=== PATIENT | male | born 1980 | race Caucasian/White ===

== ENCOUNTER → 2022-02-14 14:03 | Outpatient (BNVA) | payer BC, MEDICARE, SELFPAY | PROVIDERS: Family Provider Family Medicine; PCP Family Medicine; Visit Provider Family Medicine | DX: L82.1 Other seborrheic keratosis (principal) | CPT/HCPCS: 88304 ==

== ENCOUNTER 2023-06-12 18:03 | Emergency (ER) | payer BC, MEDICARE, SELFPAY ==
--- NOTE | 2023-06-12 18:09 | XRR_ITS ---
PROCEDURE INFORMATION: Exam: XR Chest Exam date and time: 06/12/2023 6:36 PM Age: 42 years old Clinical indication: Angina; Additional info: Cp TECHNIQUE: Imaging protocol: Radiologic exam of the chest. Views: 1 view. COMPARISON: CT chest con [id number] 06/06/2017 8:54 AM FINDINGS: Lungs: Unremarkable. No consolidation. Pleural spaces: Unremarkable. No pleural effusion. No pneumothorax. Heart/Mediastinum: Unremarkable. No cardiomegaly. Bones/joints: Unremarkable. XR/XR chest 1V portable [id number] IMPRESSION: No acute findings.
--- NOTE | 2023-06-12 18:09 | ECG_ITS ---
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 Measurements Intervals [place] Rate: 105 P: 42 OR: 121 QRS: 25 QRSD: 97 T: 56 QT: 312 QTc: 414 Interpretive Statements SINUS TACHYCARDIA Compared to ECG 06/05/2017 11:17:38 Sinus rhythm no longer present T-wave abnormality no longer present Electronically Signed On 06-12-2023 18:30:46 MIXED CROP AND LIVESTOCK FARMER by Darren Thomson M.D. [id number] f
[2023-06-12 18:13] VITALS: BP 135/81; PULSE 110; RESP 16; TEMP 37.1; O2SAT 96; BMI 29.4
--- NOTE | 2023-06-12 18:30 | ED_ITS ---
HPI - Chest Pain 2 General: Chief Complaint: Chest Pain Stated Complaint: cp Time Seen by Provider: 06/12/23 18:23 Source: patient Mode of arrival: ambulatory Limitations: no limitations History of Present Illness: 42-year-old male states he has been havi ng chest pain throughout the day. He states it has been a pain in the center of his chest with some going down his left arm. States he had some dyspnea as well. He denies any cough or fever no history of coronary artery disease. Associated symptoms: Deny abdominal pain, dyspnea, fever(s), nausea or vomiting Review of Systems 2 Const: Denies: fever(s), chills, body aches or change in appetite Eyes: Denies: blurry vision or eye discomfort ENMT: Denies: throat pain or dental pain Card: Reports: chest pain Resp: Denies: dyspnea GI: Denies: abdominal pain, nausea, vomiting or diarrhea Musc: Denies: neck pain or back pain Skin/Breast: Denies: rash Neuro: Denies: headache(s) Physical Exam 2 Const: COMMON NORMALS: patient oriented x3 HENMT: COMMON NORMALS: normocephalic and atraumatic HEAD & SCALP: n ormocephalic and atraumatic Eye: COMMON NORMALS: Equal, round and reactive pupils present and EOMs intact bilaterally PUPIL: Yes Equal, round and reactive pupils present Neck/C-Spine: COMMON NORMALS: full ROM and supple Chest: COMMONS NORMALS: normal inspection of the chest and normal palpation of entire chest wall Resp: COMMON NORMALS: normal respiratory effort, No retractions, No use of accessory muscles and clear to auscultation bilaterally AUSCULTATION: clear to auscultation bilaterally Cardio: COMMON NORMALS: regular rhythm and No murmurs present (Cardio) R ATE: tachycardic RHYTHM: regular rhythm GI: COMMON NORMALS: Normal to inspection, nondistended, normoactive bowel sounds present, Soft to palpation, non-tender and no masses PALPATION: Yes Soft to palpation Extremity: COMMON NORMALS: normal to inspection and full ROM Neuro: COMMON NORMALS: patient oriented x3, moves all extremities and no focal motor deficits Psych: COMMON NORMALS: mental status grossly normal, Normal thought process present and cooperative THOUGHT PROCESS: Normal thought process present Skin: COMMON NORMALS: no rashes or lesions noted and no wounds GENERAL SKIN EXAM: no rashes or lesions noted Course 2 Vital Signs: Vital signs: Vital Signs Temperature 98.7 F 06/12/23 18:13 Pulse Rate 78 06/12/23 20:18 Respiratory Rate 15 06/12/23 20:18 Blood Pressure 146/81 06/12/23 18:59 Pulse Oximetry 97 06/12/23 20:18 Oxygen Delivery Me thod Room Air 06/12/23 20:18 MDM - Chest Pain Medical Decision Making Patient presents with chest pain since resolved patient is well-appearing here EKG his troponin D-dimer all normal no signs of acute coronary syndrome or dissection he is stable for discharge she is follow-up with PCP and return if worsening. Medical Records I reviewed the patient's medical records. Lab Data I reviewed the patient's lab results. 06/12/23 18:13 06/12/23 18:13 Radiology Impressions Chest X-Ray 06/12/23 18:09 IMPRESSION: No acute findings. Laboratory Results WBC 8.32 10^3/uL (3.29-11.43) 06/12/23 18:13 RBC 5.07 10^6/uL (3.85-5.65) 06/12/23 18:13 Hgb 16.20 g/dL (11.27-16.99) 06/12/23 18:13 Hct 46.8 % (37-53) 06/12/23 18:13 MCV 92.3 fl (82-101) 06/12/23 18:13 MCH 32.0 pg (27-33) 06/12/23 18:13 MCHC 34.6 g/dL (30-55) 06/12/23 18:13 RDW 13.0 % (12.1-15.1) 06/12/23 18:13 Plt Count 330 10^3/cmm (157-399) 06/12/23 18:13 MPV 8.9 fL (7.4-10.4) 06/12/23 18:13 Neut % (Auto) 35.0 % 06/12/23 18:13 Lymph % (Auto) 55.4 % 06/12/23 18:13 Dewitt % (Auto) 7.1 % 06/12/23 18:13 Eos % (Auto) 2.0 % 06/12/23 18:13 Baso % (Auto) 0.4 % 06/12/23 18:13 Neut # (Auto) 2.91 10^3/uL (1.8-7.7) 06/12/23 18:13 Lymph # (Auto) 4.6 10^3/uL (0.8-4.8) 06/12/23 18:13 Dewitt # (Auto) 0.6 10^3/uL (0.2-0.9) 06/12/23 18:13 Eos # (Auto) 0.2 10^3/uL (0.0-0.8) 06/12/23 18:13 Baso # (Auto) 0.0 10^3/uL (0.0-0.1) 06/12/23 18:13 Nucleated RBC % (auto) 0 % 06/12/23 18:13 Nucleated RBCs # 0.0 /100WBC 06/12/23 18:13 PT 12.40 SECONDS (12.1-14.9) 06/12/23 18:13 INR 0.90 (0.8-1.2) 06/12/23 18:13 D-Dimer 0.31 ug/mLFEU (0-0.59) 06/12/23 18:13 Sodium 139 mmol/L (136-145) 06/12/23 18:13 Potassium 3.9 mmol/L (3.5-5.1) 06/12/23 18:13 Chloride 104 mmol/L (98-107) 06/12/23 18:13 Carbon Dioxide 23 mmol/L (22-29) 06/12/23 18:13 Anion Gap 15.9 (5-19) 06/12/23 18:13 BUN 8 mg/dL (6-20) 06/12/23 18:13 Creatinine 0.7 mg/dL (0.7-1.2) 06/12/23 18:13 GFR Calculation 122.5 mL/min (90-130) 06/12/23 18:13 Glucose 103 mg/dL (65-115) 06/12/23 18:13 Calculated Osmolality 287 mOsm/kg (285-295) 06/12/23 18:13 Calcium 9.1 mg/dL (8.5-10.5) 06/12/23 18:13 Total Bilirubin 0.4 mg/dL (0.15-1.2) 06/12/23 18:13 AST 16 U/L (0-40) 06/12/23 18:13 ALT 20 U/L (0-41) 06/12/23 18:13 Alkaline Phosphatase 100 U/L (40-130) 06/12/23 18:13 Troponin T Baseline < 6 ng/L (0-15) 06/12/23 18:13 Troponin T 120 Minute 6.00 ng/L (0-15) 06/12/23 19:50 Delta Troponin T 0.91162 ABS# (0-10) 06/12/23 19:50 Total Protein 7.3 g/dL (6.6-8.7) 06/12/23 18:13 Albumin 4.4 g/dL (3.5-5.2) 06/12/23 18:13 Globulin 2.9 g/dL (1.3-4.6) 06/12/23 18:13 Lipase 34 U/L (13-60) 06/12/23 18:13 All radiology interpretation(s) finalized by discharge EKG Data EKG 2: I personally reviewed and interpreted this EKG as follows: EKG interpretation date: 06/12/23 EKG interpretation time: 19:57 Interpretation: nsr hr [address] or t wave abnormalities qrs 97 qtc 404 EKG 1: I personally reviewed and interpreted this EKG as follows: EKG interpretation date: 06/12/23 EKG interpretation time: 18:09 Interpretation: sinus tach hr [address] or t wave abnormalities qrs 97 qtc 414 Discharge Plan Discharge Patient Disposition: Home Clinical Impression: Chest pain Qualifiers: Chest pain type: unspecified Qualified Code(s): R07.9 - Chest pain, unspecified Condition: Stable Prescriptions: No Action simvastatin 40 mg tablet See Rx Instructions .ROUTE .COMPLEX Qty: 90 3RF Dose Instruction: TAKE 1 TABLET BY MOUTH EVERY DAY Rx Instructions: TAKE 1 TABLET BY MOUTH EVERY DAY gabapentin 300 mg capsule See Rx Instructions .ROUTE .COMPLEX Qty: 90 11RF Dose Instruction: TAKE 1 CAPSULE BY MOUTH THREE TIMES A DAY Rx Instructions: TAKE 1 CAPSULE BY MOUTH THREE TIMES A DAY Discharge Orders: Discharge ED (Routine); Ordered 06/12/23 Ordered By: Arnulfo Cervantes Referrals: Goran Lui MD [Primary Care Provider] - Discharge Diet: Advance as tolerated Discharge Activity: Resume usual activity Patient Instructions: Chest Pain (ED) Coding Level of Care Code ED Senior 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
[2023-06-12 18:52] LABS: Basophils % 0.4 %; Eosinophils # 0.2 10^3/uL (0.0-0.8); Hematocrit 46.8 % (37-53); Lymphocytes # 4.6 10^3/uL (0.8-4.8); Lymphocytes % 55.4 %; Mean Corpuscular HGB Conc 34.6 g/dL (30-55); Mean Corpuscular Volume 92.3 fl (82-101); Mean Platelet Volume 8.9 fL (7.4-10.4); Monocytes # 0.6 10^3/uL (0.2-0.9); Monocytes % 7.1 %; Neutrophils # 2.91 10^3/uL (1.8-7.7); Nucleated Red Blood Cells % 0 %; Platelet Count 330 10^3/cmm (157-399); Red Blood Count 5.07 10^6/uL (3.85-5.65); White Blood Count 8.32 10^3/uL (3.29-11.43)
[2023-06-12 18:57] VITALS: RESP 14; O2SAT 96
[2023-06-12] MEDS: morphine 4 mg/mL SDV 1 mL IVP (18:57)
[2023-06-12] MEDS: aspirin 81 mg Chew Tablet 324 MG PO (18:57)
[2023-06-12 18:59] VITALS: BP 146/81; PULSE 89; RESP 17; O2SAT 94
[2023-06-12] MEDS: ondansetron 2 mg/ML SDV 2 mL 4 MG IVP (18:59)
[2023-06-12 19:08] LABS: Troponin(5th) Baseline < 6 ng/L (0-15)
[2023-06-12 19:09] LABS: Alanine Aminotransferase 20 U/L (0-41); Albumin Level 4.4 g/dL (3.5-5.2); Alkaline Phosphatase 100 U/L (40-130); Anion Gap 15.9 (5-19); Aspartate Amino Transferase 16 U/L (0-40); Blood Urea Nitrogen 8 mg/dL (6-20); Calcium 9.1 mg/dL (8.5-10.5); Carbon Dioxide 23 mmol/L (22-29); Chloride 104 mmol/L (98-107); Globulin 2.9 g/dL (1.3-4.6); Glomerular Filtration Rate 122.5 mL/min (90-130); Glucose 103 mg/dL (65-115); Lipase 34 U/L (13-60); Osmolality Calculated 287 mOsm/kg (285-295); Potassium 3.9 mmol/L (3.5-5.1); Sodium 139 mmol/L (136-145); Total Bilirubin 0.4 mg/dL (0.15-1.2); Total Protein 7.3 g/dL (6.6-8.7)
[2023-06-12 19:14] LABS: D Dimer 0.31 ug/mLFEU (0-0.59)
[2023-06-12 20:11] LABS: Troponin 5 2HR Delta 0.00001 ABS# (0-10)
[2023-06-12 20:18] VITALS: PULSE 78; RESP 15; O2SAT 97
[2023-06-12 20:43] VITALS: PULSE 78; RESP 15; O2SAT 97
== END 2023-06-12 20:30 | disposition home or self-care (01) ==
PROVIDERS: Emergency Provider Emergency Medicine; Family Provider Family Medicine; PCP Family Medicine
DX: R07.9 Chest pain, unspecified (principal)
CPT/HCPCS: 36415; 71045; 80053; 83690; 84484; 85025; 85378; 85610; 93005; 96374; 96375; 99285; J2270; J2405

== ENCOUNTER → 2024-01-28 08:31 | Outpatient (BNVA) | payer BC, MEDICARE, SELFPAY | PROVIDERS: Family Provider Family Medicine; PCP Family Medicine; Visit Provider Family Medicine | DX: R30.0 Dysuria (principal); R39.11 Hesitancy of micturition | CPT/HCPCS: 81000; 84153; 87086 ==

== ENCOUNTER 2024-05-28 07:51 | Outpatient (CLI) | payer BC, MEDICARE, SELFPAY ==
--- NOTE | 2024-05-28 07:58 | MR_ITS ---
WS: [id number] MRI CERVICAL SPINE NONCONTRAST HISTORY: CERVICALGIA COMPARISON: 01/12/2019 Technique: Multiplanar, multisequence noncontrast imaging of the cervical spine. Straightening very slight reversal of the normal cervical lordosis. Mild progression of degenerative disc disease and osteophytosis in the cervical spine since 01/12/2019. Signal within the cervical cord is normal. Visualized posterior fossa is unremarkable. Craniocervical junction, C1 and C2 relationship, odontoid process and soft tissues are normal. C2-C3: Small central disc protrusion. No stenosis. C3-C4: Mild annular disc bulging with osteophytic ridging. Shallow central disc protrusion. No signif icant stenosis. C4-C5: Mild annular disc bulging with a central disc protrusion and osteophytic ridging. Mild bilater al facet arthritis. Effacement of ventral CSF. Mild encroachment on the ventral thecal sac by the dis c protrusion. Very mild central and bilateral foraminal stenosis. No obvious change. C5-C6: Diffuse annular disc bulging with mild osteophytic ridging. Small central disc protrusion. Mil d facet arthritis. Mild central and bilateral foraminal stenosis. C6-C7: No stenosis. C7-T1: No stenosis. Paraspinal soft tissue are normal. MR/MR cervical spin wo con* [id number] IMPRESSION: 1. No high-grade central or foraminal stenosis. 2. Mild progression of degenerative disc disease and osteophytosis since 2018. 3. C2-3 and C3-4: Small central disc protrusions. No stenosis. 4. C4-5: Mild central and bilateral foraminal stenosis due to disc and osteoph yte disease. No progression. 5. C5-6: Mild central and bilateral foraminal stenosis with a small central di sc protrusion. No progression.
== END 2024-05-28 07:52 | disposition home or self-care (01) ==
LOC: RAD 07:53
PROVIDERS: Family Provider Family Medicine; PCP Family Medicine; Visit Provider Nurse Practitioner
DX: M50.20 Other cervical disc displacement, unspecified cervical region (principal); M25.78 Osteophyte, vertebrae
CPT/HCPCS: 72141

== ENCOUNTER 2024-08-13 14:10 | Inpatient (IN) | payer BC, MEDICARE, SELFPAY ==
[2024-08-13] VITALS (23 sets, daily range): BP systolic 115–172; BP diastolic 72–121; PULSE 64–104; RESP 11–17; TEMP 36.6–36.9; O2SAT 92–100; BMI 28.5
--- NOTE | 2024-08-13 14:11 | ECG_ITS ---
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 Measurements Intervals [place] Rate: 100 P: 22 MO: 128 QRS: 22 QRSD: 97 T: -7 QT: 342 QTc: 442 Interpretive Statements SINUS TACHYCARDIA POSSIBLE RIGHT VENTRICULAR CONDUCTION DELAY [RSR (QR) IN V1/V2] MINIMAL VOLTAGE CRITERIA FOR LVH, CONSIDER NORMAL VARIANT [MEETS CRITERIA IN ONE OF: R(aVL), S(V1), R(V5), R(V5/V6)+S(V1)] ABNORMAL RHYTHM ECG Compared to ECG 06/12/2023 18:09:56 No significant changes Electronically Signed On 08-14-2024 18:01:36 ROUTE SALESMAN by Darren Thomson M.D. [email or web address] [id number]
--- NOTE | 2024-08-13 14:11 | XR_ITS ---
WS: [id number] XR chest 1V portable [id number] REASON FOR EXAM: dyspnea/cough FINDINGS: Chest is stable compared to 06/12/2023. Normal mediastinum. The heart is at the upper limits of normal in size. Bilateral calcified granulomatous disease. No acute pulmonary parenchymal or pleural abnormality Bony thorax intact without significant abnormality. XR/XR chest 1V portable [id number] IMPRESSION: Stable chest without acute abnormality.
--- NOTE | 2024-08-13 14:13 | ED_ITS ---
HPI - Chest Pain 2 General: Chief Complaint: Chest Pain Stated Complaint: chest pain Time Seen by Provider: 08/13/24 14:11 History of Present Illness: 43-year-old male presents emergency room via field services director for his primary care physician after experiencing chest pain. Patient states for the last about 1 to 2 weeks she has had intermittent episodes of chest pain last from a few seconds to a few minutes he does not notice anything that exacerbates or relieves it. He reports back in 2017 he had a episode of chest pain he was admitted at that time and had a cardiac cath was told it was not normal. Since then he has not had any stress test. Patient is a smoker he has a strong family history of heart disease several family members who in their 50s of coronary artery disease. He is mildly overweight and is a daily smoker. Reviewing chart on June 12, 2023 patient was in the emergency room with complaints of chest pain evaluation at that time was negative he did not have a follow-up stress test that I can find in the chart. Associated symptoms: Deny abdominal pain, dyspnea or fever(s) Related Data Home Medications ?Medication ?Instructions ?Recorded ?Confirmed aspirin 81 mg tablet,delayed 81 mg PO DAILY 06/17/23 0 08/13/24 release (Adult Aspirin Regimen) hydrocodone 10 mg-acetaminophen See Rx Instructions .R oute .COMPLEX 08/13/24 08/13/24 325 mg tablet Previous Rx's ?Medication ?Instructions ?Recorded duloxetine 60 mg capsule,delayed 60 mg PO DAILY #90 ca ps 09/11/23 release simvastatin 40 mg tablet See Rx Instructions .Route 0 10/22/23 .COMPLEX #90 tabs gabapentin 300 mg capsule See Rx Instructions .Route 0 02/04/24 .COMPLEX #90 caps gabapentin 600 mg tablet See Rx Instructions .Route 0 06/28/24 .COMPLEX #90 tabs Allergies Allergy/AdvReac Type Severity Reaction Status Date / Time No Known Allergies Allergy Verified 08/13/24 13:10 Review of Systems 2 Const: Denies: fever(s) or chills Card: Reports: chest pain Resp: Denies: dyspnea GI: Denies: abdominal pain : Denies: dysuria, urinary frequency or urinary urgency Musc: Reports: back pain (Chronic); Denies: neck pain Skin/Breast: Denies: rash PFSH ED 2 PFSH: Medical History Hypertension Chronic back pain Anxiety Social History Smoking and tobacco/nicotine status: current every day tobacco/nicotine user Physical Exam 2 Const: GENERAL APPEARANCE: cooperative ORIENTATION/CONSCIOUSNESS: Yes awake, Yes oriented to person, Yes oriented to place and Yes oriented to time HENMT: COMMON NORMALS: normocephalic, atraumatic and hearing grossly normal bilaterally HEAD & SCALP: normocephalic and atraumatic Resp: COMMON NORMALS: normal respiratory effort, No retractions, No use of accessory muscles and clear to auscultation bilaterally AUSCULTATION: clear to auscultation bilaterally Cardio: COMMON NORMALS: regular rate, regular rhythm and No murmurs present (Cardio) RATE: regular rate RHYTHM: regular rhythm GI: COMMON NORMALS: Soft to palpation and No hepatosplenomegaly present A USCULTATION: Yes normoactive bowel sounds PALPATION: Yes Soft to palpation, No Tenderness to palpation present (GI), No Guarding due to palpation present (GI) and Yes No hepatosplenomegaly present Extremity: COMMON NORMALS: normal to inspection, capillary refill normal, no clubbing, cyanosis or edema, no calf tenderness and no pedal edema Neuro: SENSORIUM/ORIENTATION: Yes oriented to person, Yes oriented to place and Yes oriented to time Skin: COMMON NORMALS: no rashes or lesions noted GENERAL SKIN EXAM: no rashes or lesions noted Course 2 Vital Signs: Vital signs: Vital Signs Temperature 98.4 F 08/13/24 14:11 Pulse Rate 93 08/13/24 14:25 Respiratory Rate 17 08/13/24 14:11 Blood Pressure 149/99 08/13/24 14:25 Pulse Oximetry 96 08/13/24 14:11 Oxygen Delivery Me thod Room Air 08/13/24 14:11 MDM - Chest Pain Medical Decision Making Patient presents with escalating chest pain her last week and after 2 weeks. Does not really note anything that aggravates it. Is a little unusual and that he gets spasm-like sharp pain. Concerning is he has multiple risk factors?family history smoking history hypertension obesity. His EKG does not show any acute changes. His previous cardiac catheterization does show there was some coronary disease in 2017 but he has not had any stress testing since. Will place patient on observation discussed with hospitalist and cardiology. Medical Records Reviewing old records. His EKG does not show any acute changes compared to EKG done June 12, 2023 we were able to pull the old catheterization report off of the old [employer] system. Cardiac catheterization done on June 05, 2017 showed 20% stenosis proximal LAD and diffuse irregularity of the RCA. Patient had a ER visit in June 2023 with an episode of chest pain workup in ER was negative but he did not have any follow-up stress testing. Lab Data 08/13/24 14:25 08/13/24 14:25 Radiology Impressions Chest X-Ray 08/13/24 14:11 IMPRESSION: Stable chest without acute abnormality. Laboratory Results WBC 9.87 10^3/uL (3.29-11.43) 08/13/24 14: RBC 4.67 10^6/uL (3.85-5.65) 08/13/24 14:25 Hgb 15.00 g/dL (11.27-16.99) 08/13/24 14:25 Hct 43.3 % (37-53) 08/13/24 14:25 MCV 92.7 fl (82-101) 08/13/24 14:25 MCH 32.1 pg (27-33) 08/13/24 14:25 MCHC 34.6 g/dL (30-55) 08/13/24 14:25 RDW 13.1 % (12.1-15.1) 08/13/24 14:25 Plt Count 344 10^3/cmm (157-399) 08/13/24 14:25 MPV 9.1 fL (7.4-10.4) 08/13/24 14:25 Neut % (Auto) 59.5 % 08/13/24 14:25 Lymph % (Auto) 34.5 % 08/13/24 14:25 Mitchell % (Auto) 4.7 % 08/13/24 14:25 Eos % (Auto) 0.8 % 08/13/24 14:25 Baso % (Auto) 0.2 % 08/13/24 14:25 Neut # (Auto) 5.87 10^3/uL (1.8-7.7) 08/13/24 14:25 Lymph # (Auto) 3.4 10^3/uL (0.8-4.8) 08/13/24 14:25 Mitchell # (Auto) 0.5 10^3/uL (0.2-0.9) 08/13/24 14:25 Eos # (Auto) 0.1 10^3/uL (0.0-0.8) 08/13/24 14:25 Baso # (Auto) 0.0 10^3/uL (0.0-0.1) 08/13/24 14:25 Nucleated RBC % (auto) 0 % 08/13/24 14:25 Nucleated RBCs # 0.0 /100WBC 08/13/24 14:25 Sodium 141 mmol/L (136-145) 08/13/24 14:25 Potassium 3.6 mmol/L (3.5-5.1) 08/13/24 14:25 Chloride 102 mmol/L (98-107) 08/13/24 14:25 Carbon Dioxide 24 mmol/L (22-29) 08/13/24 14:25 Anion Gap 18.6 (5-19) 08/13/24 14:25 BUN 9 mg/dL (6-20) 08/13/24 14:25 Creatinine 0.7 mg/dL (0.7-1.2) 08/13/24 14:25 GFR Calculation 122.0 mL/min (90-130) 08/13/24 14:25 Glucose 104 mg/dL (65-115) 08/13/24 14:25 Calculated Osmolality 291 mOsm/kg (285-295) 08/13/24 14:25 Calcium 9.6 mg/dL (8.5-10.5) 08/13/24 14:25 Total Bilirubin 0.3 mg/dL (0.15-1.2) 08/13/24 14:25 AST 26 U/L (0-40) 08/13/24 14:25 ALT 29 U/L (0-41) 08/13/24 14:25 Alkaline Phosphatase 106 U/L (40-130) 08/13/24 14:25 Troponin T Baseline < 6 ng/L (0-15) 08/13/24 14:25 Total Protein 8.0 g/dL (6.6-8.7) 08/13/24 14:25 Albumin 4.9 g/dL (3.5-5.2) 08/13/24 14:25 Globulin 3.1 g/dL (1.3-4.6) 08/13/24 14:25 All radiology interpretation(s) finalized by discharge Clincial Decision Support The following clinical decision support tools were used to aid in care of the patient HEART Score -> History: Moderately Suspicious, EKG: Non-specific Changes, Age: 45-64 yrs, Risk Factors: >/=3 Risk Factors, Troponin: Baseline Trop <16 ng/L. Resulting HEART Score: 5. Discharge Plan Discharge Patient Disposition: Placed in Observation Admit Provider: Erika Butler Clinical Impression: Chest pain, Tachycardia Hypertension Qualifiers: Hypertension type: unspecified Qualified Code(s): I10 - Essential (primary) hypertension Coding Level of Care Code ED Executive Coordinator for Priscilla Cline
[2024-08-13] MEDS: nitroglycerin 1 gm/inch oint Pkt 0.5 INCH TOPICAL (14:25)
[2024-08-13 14:31] LABS: Basophils % 0.2 %; Eosinophils # 0.1 10^3/uL (0.0-0.8); Eosinophils % 0.8 %; Hematocrit 43.3 % (37-53); Lymphocytes # 3.4 10^3/uL (0.8-4.8); Lymphocytes % 34.5 %; Mean Corpuscular HGB Conc 34.6 g/dL (30-55); Mean Corpuscular Hemoglobin 32.1 pg (27-33); Mean Corpuscular Volume 92.7 fl (82-101); Mean Platelet Volume 9.1 fL (7.4-10.4); Monocytes # 0.5 10^3/uL (0.2-0.9); Monocytes % 4.7 %; Neutrophils # 5.87 10^3/uL (1.8-7.7); Neutrophils % 59.5 %; Nucleated Red Blood Cells % 0 %; Platelet Count 344 10^3/cmm (157-399); Red Blood Count 4.67 10^6/uL (3.85-5.65); Red Cell Distribution Width 13.1 % (12.1-15.1); White Blood Count 9.87 10^3/uL (3.29-11.43)
[2024-08-13 14:54] LABS: Alanine Aminotransferase 29 U/L (0-41); Albumin Level 4.9 g/dL (3.5-5.2); Alkaline Phosphatase 106 U/L (40-130); Anion Gap 18.6 (5-19); Aspartate Amino Transferase 26 U/L (0-40); Blood Urea Nitrogen 9 mg/dL (6-20); Calcium 9.6 mg/dL (8.5-10.5); Carbon Dioxide 24 mmol/L (22-29); Chloride 102 mmol/L (98-107); Creatinine Clr Calc Pharmacy 159.5804; Globulin 3.1 g/dL (1.3-4.6); Glucose 104 mg/dL (65-115); Osmolality Calculated 291 mOsm/kg (285-295); Potassium 3.6 mmol/L (3.5-5.1); Sodium 141 mmol/L (136-145); Total Bilirubin 0.3 mg/dL (0.15-1.2)
--- NOTE | 2024-08-13 14:54 | PC.NURSE ---
removed nitro paste per Dr. Graves; nitro gtt not verified at this time
[2024-08-13 14:55] LABS: Troponin(5th) Baseline < 6 ng/L (0-15)
[2024-08-13] MEDS: nitroglycerin drip 50 MG/250 ML PREMIX IV (15:08)
--- NOTE | 2024-08-13 16:24 | ECG_ITS ---
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 Measurements Intervals [place] Rate: 73 P: 47 WI: 139 QRS: 50 QRSD: 102 T: 18 QT: 407 QTc: 449 Interpretive Statements SINUS RHYTHM POSSIBLE RIGHT VENTRICULAR CONDUCTION DELAY [RSR (QR) IN V1/V2] Compared to ECG 08/13/2024 14:14:20 Sinus tachycardia no longer present Electronically Signed On 08-14-2024 19:30:02 EXPLOSIVE ORDNANCE HANDLER by Darren Thomson M.D. [id number] [id number]
[2024-08-13 16:43] LABS: Troponin 5 2HR 6.16 ng/L (0-15); Troponin 5 2HR Delta 0.16001 ABS# (0-10)
[2024-08-13] MEDS: enoxaparin 100 mg/mL Syringe 90 MG SUBCUT (17:49)
--- NOTE | 2024-08-13 18:48 | P.HP_ITS ---
Providers/Chief Complaint 2 Admitting Physician: Erika Butler MD Primary Care Provider: Goran Lui MD Chief Complaint: chest pain History of Present Illness Marbin Pierre is a 43 year old male with past medical history of dyslipidemia, history of uncontrolled blood pressure over the last 2 weeks, states systolic ranging between 1 60-1 70, multiple relatives in the family with early cardiac disease presented to the emergency room with chest pain. Patient states he has been having on and off intermittent chest discomfort for the past 2 weeks. No obvious trigger. Patient is at rest most of the times when the pain starts. No apparent relieving factors. Pain is located in the center of the chest and feels like a spasm. Waxes and wanes during the day without any apparent trigger. No shortness of breath. No orthopnea. Patient had a coronary angiogram several years ago in 2017 reportedly had some nonobstructive CAD at the time in the LAD and diffuse irregularity of the RCA. Today EKG is without any acute ST-T wave changes. First 2 troponins without significant delta, currently negative. Awaiting 6-hour trend. Patient reports relief with sublingual nitroglycerin. Because of persistent pain, he was started on a nitroglycerin infusion in the emergency room which is continuing at this time. Review of Systems 2 General: Reports: 10 or more systems reviewed and unremarkable except in HPI and below Const: Denies: fever(s), chills or body aches Eyes: Denies: change in vision, blurry vision or photophobia ENMT: Reports: hoarseness; Denies: throat pain, enlarged tonsils, odynophagia or nasal congestion Card: Denies: chest pain, palpitations, irregular heart rhythm, edema, swelling of feet/ankles, lightheadedness, pre-syncope, dyspnea on exertion or orthopnea Resp: Denies: dyspnea, productive cough, non-productive cough, wheezing, stridor, pain on inspiration, change in phlegm color, hemoptysis or chest congestion GI: Denies: abdominal pain, nausea, vomiting, hematemesis, coffee ground emesis, dysphagia, heartburn, diarrhea, constipation, GI cramping, change in stool character, hematochezia or melena : Denies: flank pain, dysuria, urinary frequency, urinary urgency, urinary hesitancy or hematuria Musc: Denies: neck pain, back pain, extremity pain, joint swelling, joint warmth or deformity Neuro: Denies: headache(s), numbness in extremities, weakness in extremities, sensory changes, difficulty walking, frequent falls, dizziness, vertigo, behavioral changes, Slurred speech present or seizure-like activity Psych: Denies: anxiety, depression, suicidal ideation or homicidal ideation Endo: Denies: polyuria, polydipsia, tired all the time, cold intolerance or hot flashes Deshawn/Lymph: Denies: easy bruising or easy bleeding Medications/Allergies Home Medications ?Medication ?Instructions ?Recorded ?Confirmed ?Last Taken ?Type aspirin 81 mg tablet,delayed 81 mg PO DAILY 06/17/23 0 08/13/24 08/13/24 History release (Adult Aspirin Regimen) duloxetine 60 mg capsule,delayed 60 mg PO DAILY #90 ca ps 09/11/23 08/13/24 08/13/24 Rx release simvastatin 40 mg tablet See Rx Instructions .Route 0 10/22/23 08/13/24 08/13/24 Rx .COMPLEX #90 tabs gabapentin 300 mg capsule See Rx Instructions .Route 0 02/04/24 08/13/24 08/13/24 Rx .COMPLEX #90 caps gabapentin 600 mg tablet See Rx Instructions .Route 0 06/28/24 08/13/24 08/13/24 Rx .COMPLEX #90 tabs hydrocodone 10 mg-acetaminophen See Rx Instructions .R oute .COMPLEX 08/13/24 08/13/24 08/13/24 History 325 mg tablet Allergies Allergy/AdvReac Type Severity Reaction Status Date / Time No Known Allergies Allergy Verified 08/13/24 13:10 PFSH Acute 2 PFSH: Medical History Hypertension Chronic back pain Anxiety Social History Smoking and tobacco/nicotine status: current every day tobacco/nicotine user Vitals/I&O/Wt Last Vital Signs Temp 98.4 F 08/13/24 14:11 Pulse 71 08/13/24 18:45 Resp 14 08/13/24 18:04 BP 126/91 08/13/24 18:45 Pulse Ox 99 08/13/24 18:45 O2 Del Method Room Air 03/07/25 14:11 Weight last 48 hrs Weight 95.254 kg Physical Exam 2 Narrative: General: No acute distress, AO x3 HEENT: PERRLA, pupils bilaterally equal and reactive, pallors not present Chest: Normal vesicular breath sounds, no added sounds, equal good air entry bilaterally CVS: S1-S2 regular, no murmurs, no tachycardia, no gallops, no rubs Abdomen: Soft, nontender, no organomegaly, bowel sounds present Neuro: No focal deficits, no facial deformity, AO x3, power 5/5 in all limbs Data 08/14/24 04:22 08/14/24 04:22 A&P Assessment and plan (1) Chest pain: (2) Hypertension: Qualifiers: Hypertension type: unspecified Qualified Code(s): I10 - Essential (primary) hypertension Plan 43-year-old male with a past medical history of dyslipidemia for which she takes simvastatin, possibly a new diagnosis of hypertension, patient reports elevated SBP with 1 60-1 70 range at home over the past 2 weeks, presenting to the hospital with chest pain. Currently no acute ST-T wave changes on EKG Baseline troponin at less than 6, 2-hour troponin at 6.16, no significant delta at 2 hours. Awaiting 6-hour trend Patient reportedly had a cardiac cath few years ago where he was noted to have some irregularities in the RCA and nonobstructive CAD in the LAD. He has had intermittent chest discomfort over the last 2 weeks. Pain is appearing to be atypical however possibility of not excluded at this time. Patient did have significant relief in pain with initiation of nitroglycerin infusion. Which is continuing at this time. Moderate echocardiogram Obtain cardiology consult for further assessment, may need stress test versus angiogram for further eval. He has been started on anticoagulation with Lovenox 1 mg/kg subcutaneously given underlying risk factors, we will continue for now pending the 6-hour troponin trend. PDMP PDMP Reviewed: Not Reviewed Attestations 2 Medical Necessity Statement*: Less than 2 midnight stay currently anticipated Coding Level of Care Code Acute Code for Chg Fwd Moderate MDM includes number and complexity of problems actively addressed during encounter, amount and/or complexity of data reviewed/ordered and described risk of complication, morbidity or mortality of management as documented Diagnoses Chest pain R07.9 Hypertension, unspecified type I10 Hypertension type: unspecified
--- NOTE | 2024-08-13 20:11 | ECG_ITS ---
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 Measurements Intervals [facility] Rate: 75 P: 32 CA: 142 QRS: 44 QRSD: 102 T: 41 QT: 385 QTc: 430 Interpretive Statements SINUS RHYTHM Compared to ECG 08/13/2024 16:24:46 No significant changes Electronically Signed On 08-14-2024 19:28:33 TERMITE TREATER by Darren Thomson M.D. [email or web address]
[2024-08-13 21:00] LABS: Troponin 5 6HR Delta 0.00001 ng/L (0-12)
[2024-08-13] MEDS: HYDROcodone-acetaminophen 10-325 mg Tablet 1 TAB PO (21:25)
[2024-08-13] MEDS: atorvastatin 40 mg Tablet 20 MG PO (21:26)
[2024-08-13] MEDS: gabapentin 300 mg Capsule 900 MG PO (21:26)
[2024-08-14] VITALS (8 sets, daily range): BP systolic 123–140; BP diastolic 76–88; PULSE 73–90; RESP 16–20; TEMP 36.7–37.1; O2SAT 93–97
[2024-08-14] MEDS: HYDROcodone-acetaminophen 10-325 mg Tablet 1 TAB PO ×4 (03:43→22:42)
[2024-08-14] MEDS: enoxaparin 100 mg/mL Syringe 90 MG SUBCUT (05:19)
[2024-08-14 05:20] LABS: Basophils % 0.3 %; Eosinophils # 0.1 10^3/uL (0.0-0.8); Eosinophils % 1.7 %; Hematocrit 41.9 % (37-53); Lymphocytes # 3.9 10^3/uL (0.8-4.8); Lymphocytes % 53.9 %; Mean Corpuscular HGB Conc 33.7 g/dL (30-55); Mean Corpuscular Hemoglobin 31.8 pg (27-33); Mean Corpuscular Volume 94.4 fl (82-101); Mean Platelet Volume 9.1 fL (7.4-10.4); Monocytes # 0.5 10^3/uL (0.2-0.9); Monocytes % 7.3 %; Neutrophils # 2.67 10^3/uL (1.8-7.7); Neutrophils % 36.7 %; Nucleated Red Blood Cells % 0 %; Platelet Count 304 10^3/cmm (157-399); Red Blood Count 4.44 10^6/uL (3.85-5.65); Red Cell Distribution Width 13.2 % (12.1-15.1); White Blood Count 7.27 10^3/uL (3.29-11.43)
[2024-08-14 05:46] LABS: Alanine Aminotransferase 31 U/L (0-41); Albumin Level 4.4 g/dL (3.5-5.2); Alkaline Phosphatase 98 U/L (40-130); Aspartate Amino Transferase 29 U/L (0-40); Blood Urea Nitrogen 11 mg/dL (6-20); Calcium 9.2 mg/dL (8.5-10.5); Carbon Dioxide 25 mmol/L (22-29); Chloride 105 mmol/L (98-107); Creatinine Clr Calc Pharmacy 184.4223; Globulin 2.1 g/dL (1.3-4.6); Glomerular Filtration Rate 145.7 mL/min (90-130); Glucose 88 mg/dL (65-115); Osmolality Calculated 293 mOsm/kg (285-295); Sodium 142 mmol/L (136-145); Total Bilirubin 0.3 mg/dL (0.15-1.2); Total Protein 6.5 g/dL (6.6-8.7)
[2024-08-14 05:50] LABS: Anion Gap 16.1 (5-19); Potassium 4.1 mmol/L (3.5-5.1)
[2024-08-14] MEDS: aspirin 81 mg EC Tablet PO (08:04)
[2024-08-14] MEDS: duloxetine 60 mg Capsule PO (08:04)
[2024-08-14] MEDS: pantoprazole DR 40 mg Tablet PO (08:04)
[2024-08-14] MEDS: gabapentin 300 mg Capsule 900 MG PO ×3 (08:04→20:08)
[2024-08-14] MEDS: morphine 4 mg/mL SDV 1 mL 2 MG IVP ×3 (08:07→20:08)
--- NOTE | 2024-08-14 08:08 | P.CONIM_ITS ---
Providers/Reason For Consult 2 Consulting Physician/Specialty*: Darren Thomson MD/ Cardiology Reason for Consult*: Chest pain Requesting Physician: Dr Graves Attending Physician: Erika Butler MD Primary Care Provider: Goran Lui MD History of Present Illness History of Present Illness Marbin Pierre is a 43 year old male with past medical history of chronic back pain on hydrocodone and gabapentin presented to hospital with 2 to 3 weeks of intermittent chest discomfort. Per patient each episode lasts 10 to 15 seconds. Sharp pain substernally that goes to the left side. For last 1 to 2 days he is feeling more frequent constant achiness. His troponins are negative. EKG is not showing ischemic changes. Review of Systems 2 Const: Denies: fever(s) or chills Card: Reports: chest pain Resp: Denies: dyspnea GI: Denies: abdominal pain : Denies: dysuria, urinary frequency or urinary urgency Musc: Reports: back pain (Chronic); Denies: neck pain Skin/Breast: Denies: rash Medications/Allergies Home Medications ?Medication ?Instructions ?Recorded ?Confirmed ?Last Taken ?Type aspirin 81 mg tablet,delayed 81 mg PO DAILY 06/17/23 0 08/13/24 08/13/24 History release (Adult Aspirin Regimen) duloxetine 60 mg capsule,delayed 60 mg PO DAILY #90 ca ps 09/11/23 08/13/24 08/13/24 Rx release simvastatin 40 mg tablet See Rx Instructions .Route 0 10/22/23 08/13/24 08/13/24 Rx .COMPLEX #90 tabs gabapentin 300 mg capsule See Rx Instructions .Route 0 02/04/24 08/13/24 08/13/24 Rx .COMPLEX #90 caps gabapentin 600 mg tablet See Rx Instructions .Route 0 06/28/24 08/13/24 08/13/24 Rx .COMPLEX #90 tabs hydrocodone 10 mg-acetaminophen See Rx Instructions .R oute .COMPLEX 08/13/24 08/13/24 08/13/24 History 325 mg tablet Allergies Allergy/AdvReac Type Severity Reaction Status Date / Time No Known Allergies Allergy Verified 08/13/24 13:10 Current Medications Generic Name Dose Route Start Last Admin Trade Name Freq PRN Reason Stop Dose Admin Hydrocodone Bitart/Acetaminophen 1 tab 08/13/24 18:50 08/14/24 03:43 Hydrocodone-Acetaminophen 10-325 Mg Tablet PO 1 tab Q6H PRN Administration MODERATE PAIN Aspirin 81 mg 08/14/24 09:00 08/14/24 08:04 Aspirin 81 Mg Ec Tablet PO 81 mg DAILY TEMITOPE Administration Atorvastatin Calcium 20 mg 08/13/24 21:00 08/13/24 21:26 Atorvastatin 40 Mg Tablet PO 20 mg BEDTIME TEMITOPE Administration Duloxetine HCl 60 mg 08/14/24 09:00 08/14/24 08:04 Duloxetine 60 Mg Capsule PO 60 mg DAILY TEMITOPE Administration Enoxaparin Sodium 90 mg 08/14/24 06:00 08/14/24 05:19 Enoxaparin 100 Mg/Ml Syringe SUBCUT 90 mg Q12H TEMITOPE Administration Gabapentin 900 mg 08/13/24 21:00 08/14/24 08:04 Gabapentin 300 Mg Capsule PO 900 mg TID TEMITOPE Administration Nitroglycerin/Dextrose 50 mg in 250 mls @ 0 mls/hr 08/13/24 15:00 08/14/24 01:56 Nitroglycerin Drip IV 10 mcg/min .Q0M TEMITOPE 3 mls/hr Titration Protocol Per Protocol Pantoprazole Sodium 40 mg 08/14/24 09:00 08/14/24 08:[address] 40 Mg Tablet PO 40 mg DAILY TEMITOPE Administration PFSH Acute 2 PFSH: Medical History Hypertension Chronic back pain Anxiety Social History Smoking and tobacco/nicotine status: current every day tobacco/nicotine user Vitals/I&O/Wt Last Vital Signs Temp 98.4 F 08/14/24 08:00 Pulse 78 08/14/24 08:00 Resp 20 H 08/14/24 08:00 BP 139/86 08/14/24 08:00 Pulse Ox 93 08/14/24 08:00 O2 Del Method Room Air 08/14/24 08:00 08/13/24 08/14/24 08/14/24 22:59 06:59 14:59 Intake Total 489.7 / 489.7 Output Total Balance 488.7 / 488.7 Weight last 48 hrs Weight 205 lb 9.6 oz Weight 204 lb 14.4 oz Weight 210 lb Physical Exam 2 Narrative: GENERAL: Patient is alert, awake and oriented x3. [] NECK: No jugular vein distension. [] HEENT: No cyanosis. No icterus. No pallor. [] HEART: Regular S1 and S2. No murmur, rub or gallop. [] LUNGS: Clear to auscultate bilaterally. [] CENTRAL NERVOUS SYSTEM: Grossly nonfocal. [] EXTREMITIES: Lower extremities with no edema Data 08/14/24 04:22 08/14/24 04:22 A&P Assessment and plan (1) Chest pain: (2) Hypertension: Qualifiers: Hypertension type: unspecified Qualified Code(s): I10 - Essential (primary) hypertension Plan Patient has chest pain symptoms that are mostly atypical. He has family history of CAD. Also has hypertension. Not on any medications. Has chronic back and neck discomfort. On pain medications. His troponins are negative with EKG not showing ischemic changes. Will obtain echocardiogram. If LV systolic function is normal, will recommend stress test on Friday. If see regional wall motion abnormalities or LV dysfunction, will proceed with coronary angiogram tomorrow. Continue aspirin. Thank you for involving us with care of this patient. We will continue to follow. please call with questions PDMP PDMP Reviewed: Not Reviewed Consult Attestations 2 Medical Necessity Statement: Care expected to cross 2 midnights. Coding Level of Care Code Acute Code for [facility] Diagnoses Chest pain R07.9 Hypertension, unspecified type I10 Hypertension type: unspecified
--- NOTE | 2024-08-14 10:39 | PC.CHAP ---
Pastoral Care Encounter/Spiritual Assessment Type of Contact [X] Declined stable helper visit [] Patient/Family/Request visit [] Outpatient visit [] Follow-up visit [] Physician referral [] Code/Alert [] Routine visit [] Staff referral [] Actively dying [] Patient sleeping [] Family support [] [] Out of room [] Palliative care [] [] Receiving care in room [] Pre-surgical visit [] Trauma [] Long length of stay [] ICU visit [] Other: Relational/Emotional Strength [] Patient feels connected with others/family/visitors/staff [] Distress [] Loneliness/isolation [] Abandonment Spirituality of Patient [] Person of Megan [] Attends Bahai of their Megan [] Believes in Prayer [] Reads Bible or Methodist materials [] There are Spiritual issues to be addressed Inspector Eyeglass Interventions [] Prayer [] Active listening [] Non-anxious presence [] Spiritual/emotional support [] Crisis/trauma care [] Spiritual counseling [] Bereavement support [] Provided bereavement packet [] Provided Bible/devotional materials [] Provided toy/stuffed animal, coloring book to patient or family member [] Provided Communion [] Anointing/[place] [] Salvation [] Completed spiritual assessment [] Other: Impact on Illness or Injury [] Angry [] Fearful [] Anxious [] Often cries [] Exhaustion [] Unable to work [] Unable to attend shinto [] Unable to walk/stand [] Unable to read [] Unable to drive [] Unable to eat/drink [] Unable to sleep [] Unable to be with family [] Patient intubated [] Other: Summary Time spent with patient
--- NOTE | 2024-08-14 10:45 | USCV_ITS ---
Marbin Pierre Age: 43 Gender: M : 1980 Exam Date: 08/14/2024 14:47 Ordering Phys: Erika Butler MD Technologist: Cliff Oquendo [place] [facility] [place]: [place] BP: / HR: 72 Rhythm: Sinus Technical Quality: Adequate MEASUREMENTS (Male / Female) Normal Values 2D ECHO LV Diastolic Diameter PLAX 4.8 cm 4.2 - 5.9 / 3.9 - 5.3 cm IVS Diastolic Thickness 1.1 cm 0.6 - 1.0 / 0.6 - 0.9 cm IVS Systolic Thickness 1.4 cm LVPW Diastolic Thickness 1.9 cm 0.6 - 1.0 / 0.6 - 0.9 cm LVPW Systolic Thickness 2.2 cm LVOT Diameter 2.1 cm LV Ejection Fraction 2D Teich 50.4 % LV Ejection Fraction MOD 4C 57.9 % LV Ejection Fraction MOD 2C 62.8 % LV Ejection Fraction 2C AL 63.8 % LA Diameter 3.2 cm RA Systolic Volume 4C AL 34.2 ml RA Systolic Volume 4C MOD 33.4 ml LA Sys Volume AL 36.8 cm cubed Aorta at Sinotubular Diameter 1.9 cm IVC Diameter 1.7 cm M-MODE LA Ao Ratio MM 1.4 AV Cusp Separation MM 1.9 cm DOPPLER AV Peak Velocity 157.0 cm/s LVOT Peak Velocity 77.0 cm/s AV Area Cont Eq vti 2.6 cm squared AV Area Cont Eq pk 1.8 cm squared MV Peak Velocity 94.0 cm/s MV Area PHT 4.2 cm squared Mitral E to A Ratio 0.9 TV Peak Velocity 360.5 cm/s TR Peak Velocity 418.0 cm/s TR Peak Gradient 69.9 mmHg TR Mean Velocity 359.0 cm/s TR Mean Gradient 54.2 mmHg TR Velocity Time Integral 106.4 cm PV Peak Velocity 170.3 cm/s RV Ejection Time 0.3 s FINDINGS Left Ventricle Left ventricle is normal in size. LV systolic function is normal with EF of 55-60%. No regional wall motion abnormalities. Grade 1 diastolic dysfunction Right Ventricle Normal in size and function Right Atrium Normal in size Left Atrium Normal in size Mitral Valve Structurally normal mitral valve. Trace mitral regurgitation. Aortic Valve Structurally normal aortic valve. No significant stenosis or regurgitation. Tricuspid Valve Insufficient TR jet to calculate RVSP Pulmonic Valve Not well visualized Pericardium Normal Aorta Normal in size IVC Appears to be normal CONCLUSIONS LV systolic function is normal with EF of 55-60% Grade 1 diastolic dysfunction Trace mitral regurgitation Darren Thomson MD (Electronically Signed) Final Date: 14 August 2024 20:02 S
--- NOTE | 2024-08-14 10:49 | PM.PN ---
Subjective Subjective: Chest pain is much better today. States he has had intermittent twinge much improved compared to yesterday. Medications: Reviewed: Yes Vitals/I&O/Wt Last Vital Signs Temp 98.4 F 08/14/24 08:00 Pulse 78 08/14/24 08:00 Resp 18 08/14/24 08:07 BP 139/86 08/14/24 08:00 Pulse Ox 93 08/14/24 08:00 O2 Del Method Room Air 08/14/24 08:00 08/13/24 08/14/24 08/14/24 22:59 06:59 14:59 Intake Total 489.7 / 489.7 Output Total Balance 488.7 / 488.7 Weight last 48 hrs Weight 93.259 kg Weight 92.941 kg Weight 95.254 kg Physical Exam Narrative: General: No acute distress, AO x3 HEENT: PERRLA, pupils bilaterally equal and reactive, pallors not present Chest: Normal vesicular breath sounds, no added sounds, equal good air entry bilaterally CVS: S1-S2 regular, no murmurs, no tachycardia, no gallops, no rubs Abdomen: Soft, nontender, no organomegaly, bowel sounds present Neuro: No focal deficits, no facial deformity, AO x3, power 5/5 in all limbs Data 08/14/24 04:22 08/14/24 04:22 A&P Assessment and plan (1) Chest pain: (2) Hypertension: Qualifiers: Hypertension type: unspecified Qualified Code(s): I10 - Essential (primary) hypertension Plan 43-year-old male with a past medical history of dyslipidemia for which she takes simvastatin, possibly a new diagnosis of hypertension, patient reports elevated SBP with 1 60-1 70 range at home over the past 2 weeks, presenting to the hospital with chest pain. Currently no acute ST-T wave changes on EKG Baseline troponin at less than 6, 2-hour troponin at 6.16, no significant delta at 2 hours. Awaiting 6-hour trend Patient reportedly had a cardiac cath few years ago where he was noted to have some irregularities in the RCA and nonobstructive CAD in the LAD. He has had intermittent chest discomfort over the last 2 weeks. Pain is appearing to be atypical however possibility of not excluded at this time. Patient did have significant relief in pain with initiation of nitroglycerin infusion. Which is continuing at this time. Moderate echocardiogram Obtain cardiology consult for further assessment, may need stress test versus angiogram for further eval. He has been started on anticoagulation with Lovenox 1 mg/kg subcutaneously given underlying risk factors, we will continue for now pending the 6-hour troponin trend. August 14, 2024 Chest pain is improved today. Attempt to titrate off of nitroglycerin infusion. Upon initial arrival patient's systolic blood pressure was in the 170s. Patient reports similar readings at home. Likely has underlying essential hypertension. Will start amlodipine 5 mg p.o. daily. As needed nitro if needed for recurrence of chest pain. Awaiting echocardiogram to assess for any wall motion abnormalities, signs of ACS. if Echocardiogram is reassuring will likely need a stress test however patient made aware that this cannot be performed over the weekend. Appreciate cardiology evaluation PDMP PDMP Reviewed: Not Reviewed Attestations Medical Necessity Statement*: change to inpatient stay, attempt to titrate off nitroglycerin gtt, add antihypertensives, awaiting echo Coding Level of Care Code Acute Code for [facility] Diagnoses Chest pain R07.9 Hypertension, unspecified type I10 Hypertension type: unspecified
[2024-08-14 12:34] LABS: D Dimer <= 0.27 ug/mLFEU (0-0.59)
[2024-08-14] MEDS: nicotine 14 mg Patch 1 PATCH TRANSDERMA (17:41)
[2024-08-14] MEDS: atorvastatin 40 mg Tablet 20 MG PO (20:08)
[2024-08-15] VITALS (8 sets, daily range): BP systolic 136–140; BP diastolic 70–85; PULSE 76–95; RESP 16–20; TEMP 36.5–37.1; O2SAT 95–97
[2024-08-15] MEDS: morphine 4 mg/mL SDV 1 mL 2 MG IVP ×2 (03:45→10:11)
[2024-08-15] MEDS: nicotine 14 mg Patch 1 PATCH TRANSDERMA (07:33)
[2024-08-15] MEDS: pantoprazole DR 40 mg Tablet PO (07:34)
[2024-08-15] MEDS: duloxetine 60 mg Capsule PO (07:34)
[2024-08-15] MEDS: amlodipine 5 mg Tablet PO (07:34)
[2024-08-15] MEDS: HYDROcodone-acetaminophen 10-325 mg Tablet 1 TAB PO (07:34)
[2024-08-15] MEDS: gabapentin 300 mg Capsule 900 MG PO (07:34)
[2024-08-15] MEDS: aspirin 81 mg EC Tablet PO (07:34)
--- NOTE | 2024-08-15 08:34 | PM.PN ---
Vitals/I&O/Wt Last Vital Signs Temp 98.7 F 08/15/24 07:41 Pulse 78 08/15/24 07:41 Resp 20 H 08/15/24 07:41 BP 140/70 08/15/24 07:41 Pulse Ox 96 08/15/24 07:41 O2 Del Method Room Air 08/15/24 07:41 08/14/24 08/15/24 08/15/24 22:59 07:59 14:59 Intake Total 450.3 / 570.3 Balance 450.3 / 570.3 Weight last 48 hrs Weight 201 lb 12.8 oz Weight 205 lb 9.6 oz Weight 204 lb 14.4 oz Weight 210 lb Data 08/14/24 04:22 08/14/24 04:22 A&P PDMP PDMP Reviewed: Not Reviewed Coding Level of Care Code Acute Code for Chg Son
--- NOTE | 2024-08-15 12:16 | PM.DCS ---
Discharge Providers Date of Admission: 08/14/24 09:30 Date of Discharge: August 15, 2024 Attending Provider at Admission: Erika Butler MD Attending Provider at Discharge: Erika Butler MD Primary Care Provider: Goran Lui MD Diagnoses at Discharge Discharge Diagnosis (1) Chest pain: Status: Acute (2) Hypertension: Status: Acute Qualifiers: Hypertension type: unspecified Qualified Code(s): I10 - Essential (primary) hypertension Reason for Visit Reason for Visit: chest pain Brief History: Marbin Pierre is a 43 year old male with past medical history of dyslipidemia, history of uncontrolled blood pressure over the last 2 weeks, states systolic ranging between 1 60-1 70, multiple relatives in the family with early cardiac disease presented to the emergency room with chest pain. There did not appear to be any aspirin triggers for the chest pain however it was relieved by nitro. Patient needed to be started on a nitroglycerin infusion on day 1. His EKG remained without any acute ST-T wave changes. Troponin series was negative at 6, 6, 6 without any significant elevation at 2 or 6 hours. Echocardiogram was completed which showed LVEF of about 60% without any regional wall motion abnormalities. Overall probability of ACS considered low, however cannot exclude angina given he does have some underlying risk factors. Patient was advised to undergo a stress test. Since it is a Friday we were unable to get it over the weekend. Patient was given the option of staying until Friday and completing a stress test in house, however he preferred to leave today to complete the testing as an outpatient. He is currently chest pain-free. Low probability of ACS. Outpatient stress test has been ordered. Additionally started on amlodipine 5 mg p.o. twice daily. Systolic blood pressure during hospital stay ranged between 1 46-1 70 systolic. Recommended to keep a blood pressure diary by checking BP twice daily and bring it to his primary care provider for review within the next week. D-dimer was negative, patient did not have any respiratory symptoms therefore PE considered unlikely. Physical Exam Narrative: General: No acute distress, AO x3 HEENT: PERRLA, pupils bilaterally equal and reactive, pallors not present Chest: Normal vesicular breath sounds, no added sounds, equal good air entry bilaterally CVS: S1-S2 regular, no murmurs, no tachycardia, no gallops, no rubs Abdomen: Soft, nontender, no organomegaly, bowel sounds present Neuro: No focal deficits, no facial deformity, AO x3, power 5/5 in all limbs Discharge Data Studies Completed and Pending Completed Studies During Hospitalization Category Date Time Status XR chest 1V portable [id number] Stat Exams 08/13/24 14:11 Completed CV. echo complete* [id number] Routine Ultrasound 08/14/24 10:45 Completed Pending at discharge Category Date Time Status Cardiac Stress Test MIBI [Sestamibi Stress Test Request Exams 08/15/24 10:04 Ordered ] Routine NM julio perf SPECT r/s* [id number] Routine Nuc Med 08/15/24 10:04 Ordered Radiology Impressions Chest X-Ray 08/13/24 14:11 IMPRESSION: Stable chest without acute abnormality. Laboratory Results WBC 7.27 10^3/uL (3.29-11.43) 08/14/24 04:22 RBC 4.44 10^6/uL (3.85-5.65) 08/14/24 04:22 Hgb 14.10 g/dL (11.27-16.99) 08/14/24 04:22 Hct 41.9 % (37-53) 08/14/24 04:22 MCV 94.4 fl (82-101) 08/14/24 04:22 MCH 31.8 pg (27-33) 08/14/24 04:22 MCHC 33.7 g/dL (30-55) 08/14/24 04:22 RDW 13.2 % (12.1-15.1) 08/14/24 04:22 Plt Count 304 10^3/cmm (157-399) 08/14/24 04:22 MPV 9.1 fL (7.4-10.4) 08/14/24 04:22 Neut % (Auto) 36.7 % 08/14/24 04:22 Lymph % (Auto) 53.9 % 08/14/24 04:22 [place] % (Auto) 7.3 % 08/14/24 04:22 Eos % (Auto) 1.7 % 08/14/24 04:22 Baso % (Auto) 0.3 % 08/14/24 04:22 Neut # (Auto) 2.67 10^3/uL (1.8-7.7) 08/14/24 04:22 Lymph # (Auto) 3.9 10^3/uL (0.8-4.8) 08/14/24 04:22 [place] # (Auto) 0.5 10^3/uL (0.2-0.9) 08/14/24 04:22 Eos # (Auto) 0.1 10^3/uL (0.0-0.8) 08/14/24 04:22 Baso # (Auto) 0.0 10^3/uL (0.0-0.1) 08/14/24 04:22 Nucleated RBC % (auto) 0 % 08/14/24 04:22 Nucleated RBCs # 0.0 /100WBC 08/14/24 04:22 D-Dimer <= 0.27 ug/mLFEU (0-0.59) 08/14/24 12:04 Sodium 142 mmol/L (136-145) 08/14/24 04:22 Potassium 4.1 mmol/L (3.5-5.1) 08/14/24 04:22 Chloride 105 mmol/L (98-107) 08/14/24 04:22 Carbon Dioxide 25 mmol/L (22-29) 08/14/24 04:22 Anion Gap 16.1 (5-19) 08/14/24 04:22 BUN 11 mg/dL (6-20) 08/14/24 04:22 Creatinine 0.6 mg/dL (0.7-1.2) L 08/14/24 04:22 GFR Calculation 145.7 mL/min (90-130) H 08/14/24 04:22 Glucose 88 mg/dL (65-115) 08/14/24 04:22 Calculated Osmolality 293 mOsm/kg (285-295) 08/14/24 04:22 Calcium 9.2 mg/dL (8.5-10.5) 08/14/24 04:22 Total Bilirubin 0.3 mg/dL (0.15-1.2) 08/14/24 04:22 AST 29 U/L (0-40) 08/14/24 04:22 ALT 31 U/L (0-41) 08/14/24 04:22 Alkaline Phosphatase 98 U/L (40-130) 08/14/24 04:22 Troponin T Baseline < 6 ng/L (0-15) 08/13/24 14:25 Troponin T 120 Minute 6.16 ng/L (0-15) 08/13/24 16:05 Delta Troponin T 0.16647 ABS# (0-10) 08/13/24 16:05 Troponin T Hi Sens 6Hr 6.00 ng/L (0-15) 08/13/24 20:34 Troponin T Hi Sens 6Hr Delta 0.71933 ng/L (0-12) 08/13/24 20:34 Total Protein 6.5 g/dL (6.6-8.7) L 08/14/24 04:22 Albumin 4.4 g/dL (3.5-5.2) 08/14/24 04:22 Globulin 2.1 g/dL (1.3-4.6) 08/14/24 04:22 Vitals Last Vital Signs Temp 98.7 F 08/15/24 07:41 Pulse 78 08/15/24 07:41 Resp 18 08/15/24 10:11 BP 140/70 08/15/24 07:41 Pulse Ox 96 08/15/24 10:11 O2 Del Method Room Air 08/15/24 07:41 Discharge Plan Discharge Patient Disposition: Home Condition: Stable Prescriptions: New amlodipine 5 mg Tablet 5 mg PO DAILY 30 Days Qty: 30 0RF Continued aspirin [Adult Aspirin Regimen] 81 mg tablet,delayed release (DR/EC) 81 mg PO DAILY duloxetine 60 mg capsule,delayed release(DR/EC) 60 mg PO DAILY Qty: 90 11RF simvastatin 40 mg tablet See Rx Instructions .ROUTE .COMPLEX Qty: 90 3RF Dose Instruction: TAKE 1 TABLET BY MOUTH EVERY DAY Rx Instructions: TAKE 1 TABLET BY MOUTH EVERY DAY gabapentin 300 mg capsule See Rx Instructions .ROUTE .COMPLEX Qty: 90 11RF Dose Instruction: TAKE 1 CAPSULE BY MOUTH THREE TIMES A DAY Rx Instructions: TAKE 1 CAPSULE BY MOUTH THREE TIMES A DAY gabapentin 600 mg tablet See Rx Instructions .ROUTE .COMPLEX Qty: 90 5RF Dose Instruction: TAKE 1 TABLET BY MOUTH THREE TIMES A DAY Rx Instructions: TAKE 1 TABLET BY MOUTH THREE TIMES A DAY hydrocodone-acetaminophen 10-325 mg tablet See Rx Instructions .ROUTE .COMPLEX Rx Instructions: TAKE 1-2 TABS BY MOUTH EVERY 4-6HRS NEEDED FOR PAIN (MAX 6/DAY HOLD WITHIN 4H OF SLEEP) 14 DAYS Discharge Orders: Discharge Order (Routine); Ordered 08/15/24 Ordered By: Erika Butler Other Ambulatory Orders: Sestamibi Stress Test Request (Routine) Timeframe: 1 Week Facility: [facility] - Location: Cardiac Diagnostic Laboratory Ordered By: Erika Butler Referrals: Goran Lui MD [Primary Care Provider] - 4-7 days (We have notified your physician's clinic of the need for a follow-up appointment to be scheduled. If you have not heard from them within the next 2 business days, please call them directly. ) Patient Instructions: Amlodipine (By mouth), Chest Pain (DC), Chest Pain Stoplight, Opioid Safety, Pain Management Discharge Attestations Time Spent in Discharge Care*: greater than 30 min Quality Metrics Clinical Quality Measures [ No reported AMI, CVA or VTE this stay] Coding Level of Care Code Acute Code for g Fwd Diagnoses Chest pain R07.9 Hypertension, unspecified type I10 Hypertension type: unspecified
== END 2024-08-15 13:41 | disposition home or self-care (01) | DRG 313 ==
LOC: ER 15:36 → CSU 20:31 → ER IP 08-14 05:06
PROVIDERS: Admitting Provider Student in an Organized Health Care Education/Training Program; Emergency Provider Family Medicine; Family Provider Family Medicine; PCP Family Medicine; Visit Provider Student in an Organized Health Care Education/Training Program
DX: R07.9 Chest pain, unspecified (principal); I10 Essential (primary) hypertension; E78.5 Hyperlipidemia, unspecified; Z79.82 Long term (current) use of aspirin; Z79.891 Long term (current) use of opiate analgesic; Z82.49 Family history of ischemic heart disease and other diseases of the circulatory system; G89.29 Other chronic pain; M54.9 Dorsalgia, unspecified; F41.9 Anxiety disorder, unspecified; I25.10 Atherosclerotic heart disease of native coronary artery without angina pectoris
CPT/HCPCS: 36415; 71045; 80053; 84484; 85025; 85378; 93005; 93306; 96365; 96366; 96372; 96375; 96376; 99285; G0378; J1650; J2270; J3490; J9999

== ENCOUNTER 2024-08-25 08:54 | Outpatient (CLI) | payer MEDICARE, BC, SELFPAY ==
--- NOTE | 2024-08-25 | ECG_ITS ---
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 Interpretive Statements Lung unchanged pre/post procedure; Intraprocedure shortess of breath; Symptoms resoled by discharge PROCEDURE: At the baseline, the EKG revealed normal sinus rhythm with a normal ST Ts. Nonspecific IVCD.. The baseline heart was 86 bpm with a blood pressue of 132/83 mm of Hg Lexiscan was infused over a period of 20 seconds. A total of 0.4 milligrams of Lexiscan was infused. The stress phase was continued for a total of 5 minutes. Heart rate at the end of the stress phase was 100 bpm with a blood pressure 136/76 mm of Hg. The EKG at the peak infusion revealed no significant changes. Sestamibi was injected 20 seconds after the Lexiscan infusion. Heart rate at the end of the recovery phase was 93 bpm with a blood pressure of 135/79 mm of Hg. CONCLUSION: 1. No significant EKG changes with the LexiScan infusion 2. No LexiScan induced chest pain or cardiac arrhythmia 3. Normal blood pressure and heart rate response 4. Sestamibi/sestamibi perfusion scan pending; see separate report. Electronically Signed On 08-27-2024 16:11:08 CDT by Selena Romo M.D. [email or web address]
[2024-08-25 09:11] VITALS: BMI 28.5
--- NOTE | 2024-08-25 09:12 | NMCV_ITS ---
NM julio perf SPECT r/s* [id number] Marbin Pierre Age: 43 Gender: M : 1980 Exam Date: 08/25/2024 09:12 Ordering Phys: Erika Butler MD Technologist: JYOTSNA Bergeron Exam Location: [facility] Indications: cp STRESS TEST Please see separate stress test report in [facility] for full findings IMAGE PROTOCOL Rest/Stress 1 Lexiscan Day Radiopharmaceutical Dose (mCi) Administration Site Administered by Rest: Tc-99m 10.9 IV Priscilla Lopez PNEUDRAULIC SYSTEMS MECHANIC Sestamibi Stress:Tc-99m 32.9 IV Priscilla Chougle, PNEUDRAULIC SYSTEMS MECHANIC Sestamibi Rest: 25-Aug-2024 60 Discovery 630 Stress: 25-Aug-2024 30 Discovery 630 0.4mg Lexiscan. Images obtained in supine and prone position. SPECT RESULTS Technical Quality: Good Raw Data Analysis: Normal Image Corrections: No attenuation or motion correction applied Summed Stress Score: 2 Summed Rest Score: 0 Summed Difference Score: 2 PERFUSION FINDINGS Small area of slightly decreased tracer uptake was noted in the apical anterior and apical inferior regions. Some reversibility was noted in these regions. FUNCTIONAL RESULTS (calculated via Gated SPECT) Stress Image LV EF (%): 46 Stress EDV (mL):153 TID: 1.12 Stress ESV (mL):83 FUNCTIONAL FINDINGS: Segmental wall motion analysis revealed mild diffuse hypokinesia of the anterior wall and the apex IMPRESSIONS 1. Myocardial perfusion imaging revealing a very small area of slight reversibility in the apical anterior and apical inferior regions, suggesting ischemia in the distribution of the distal left anterior descending artery. 2. The LV ejection fraction estimated to be 46% 3. LV wall motion analysis revealed mild diffuse hypokinesia of the anteroapical region. 4. Mildly dilated LV cavity with an end-systolic volume of 83 mL No similar previous studies are available for comparison Dr Selena Romo MD [facility] (Electronically Signed) Final Date: 25 August 2024 13:38 S
[2024-08-25] MEDS: regadenoson 0.4 Mg/5 ml Syringe IVP (10:23)
[2024-08-25 10:30] VITALS: BP 135/79; PULSE 95
== END 2024-08-25 08:55 | disposition home or self-care (01) ==
LOC: CDL 08:54
PROVIDERS: PCP Family Medicine; Visit Provider Student in an Organized Health Care Education/Training Program
DX: I20.9 Angina pectoris, unspecified (principal); R93.1 Abnormal findings on diagnostic imaging of heart and coronary circulation; I42.0 Dilated cardiomyopathy
CPT/HCPCS: 36415; 78452; 93017; 96374; A9500; J2785

== ENCOUNTER 2024-11-19 15:08 | Outpatient (CLI) | payer BC, MEDICARE, SELFPAY ==
[2024-11-19 15:34] LABS: Basophils % 0.4 %; Eosinophils # 0.2 10^3/uL (0.0-0.8); Eosinophils % 2.4 %; Hematocrit 39.3 % (37-53); Lymphocytes # 3.3 10^3/uL (0.8-4.8); Lymphocytes % 44.7 %; Mean Corpuscular HGB Conc 34.4 g/dL (30-55); Mean Corpuscular Hemoglobin 32.1 pg (27-33); Mean Corpuscular Volume 93.6 fl (82-101); Mean Platelet Volume 8.6 fL (7.4-10.4); Monocytes # 0.4 10^3/uL (0.2-0.9); Monocytes % 5.7 %; Neutrophils # 3.46 10^3/uL (1.8-7.7); Neutrophils % 46.7 %; Nucleated Red Blood Cells % 0 %; Platelet Count 268 10^3/cmm (157-399); Red Cell Distribution Width 13.1 % (12.1-15.1); White Blood Count 7.42 10^3/uL (3.29-11.43)
[2024-11-19 15:47] LABS: INR 0.84 (0.83-1.21); Prothrombin Time (Patient) 12.1 Seconds (12.0-15.1)
[2024-11-19 15:51] LABS: Anion Gap 16.3 (5-19); Blood Urea Nitrogen 8 mg/dL (6-20); Calcium 8.9 mg/dL (8.5-10.5); Carbon Dioxide 24 mmol/L (22-29); Chloride 101 mmol/L (98-107); Glucose 105 mg/dL (65-115); Osmolality Calculated 283 mOsm/kg (285-295); Potassium 4.3 mmol/L (3.5-5.1); Sodium 137 mmol/L (136-145)
== END 2024-11-19 15:09 | disposition home or self-care (01) ==
LOC: LAB 15:09
PROVIDERS: PCP Family Medicine; Visit Provider Nurse Practitioner Family
DX: R94.39 Abnormal result of other cardiovascular function study (principal)
CPT/HCPCS: 36415; 80048; 85025; 85610

== ENCOUNTER 2024-11-22 09:09 | Outpatient (CLI) | payer BC, MEDICARE, SELFPAY ==
[2024-11-22] VITALS (16 sets, daily range): BP systolic 92–130; BP diastolic 54–80; PULSE 56–87; RESP 11–17; TEMP 37.3; O2SAT 91–97; BMI 28.8
--- NOTE | 2024-11-22 09:00 | XACV_ITS ---
Exam Room: 2 Ht: 183 cm Wt: 97 kg BSA: 2.23 m2 Gender: Male : 1980 Any Known Allergies: No known allergies Exam Priority: Routine Procedure(s): Procedure Description: Diagnostic procedure Procedure Description: Left Heart Catheterization Procedure Description: Left ventriculography Procedure Description: Coronary Angiography Diagnostic Cath Status: Elective Diagnostic Findings * INDICATION: Chest pain/abnormal stress test. * No significant disease noted in the Left Main, Left Anterior Descending, Right, or Circumflex coronary arteries. * Coronary angiography shows right dominance. Conclusions 1. No significant disease noted in the Left Main, Left Anterior Descending, Right, or Circumflex coronary arteries. 2. Normal left ventricular systolic function. Ejection fraction of 55%. Recommendations * Aggressive risk factor modification. * Outpatient cardiology follow up in 2 weeks. Interventional RX Recommendation: medical therapy and/or counseling Diagnostic RX Recommendation: medical therapy and/or counseling Anticoagulation: Heparin Ventriculography Ejection Fraction: 55.0 % Pressures Phase:Rest AO : 80 / 64 ( 72 ) @ 11:40:00 AM 106 / 62 ( 81 ) @ 11:46:00 AM 104 / 61 ( 79 ) @ 11:46:00 AM LV : 115 / -2 / 16 @ 11:45:00 AM 109 / -2 / 14 @ 11:46:00 AM 109 / -4 / 13 @ 11:46:00 AM Valves Phase:DefaultPhase AV : 3.0 @ 10:55:10 AM AV Mean Gradient: 13.0 @ 10:55:10 AM Clinical Evaluation EBL: 5mL-10mL Procedural Details Procedure Consent Obtained. Pre-Procedure Time Out. Identified patient by full name and date of as verbalized by the patient/guarantor. Does the consent match the physician's order: Yes. Accurate & Complete Informed Consent: Yes. Inpatient/Outpatient History & Physical on Chart: Yes. If H&P is completed, is and addenduem needed: No. Visualize and Verify Site with Patient/Guarantor: N/A. Relevant Radiology Images available: Yes. The risks, benefits, and alternatives of sedation and/or procedure were discussed by physician. The patient agrees to continue. Procedure started. [facility] Clinical Fraility Score: 4: Vulnerable. 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 Chest Pain Symptom Assessment: Typical Angina Symptoms. Cardiovascular Instability: No. Correct patient, site and procedure confirmed by cath team. PERRLA. Strong, equal hand production department supervisor bilaterally. Lungs clear x 5 lobes. IV Site on Arrival: 20 gauge in the right anticubital. IV Fluids: 0.9% NaCl at KVO. 0 mL infused prior to laboratory machinist. Pre Procedural Pulses: bilateral dorsalis pedis was 3+. Pre Procedural Pulses: bilateral posterior tibial was 3+. Pre Procedural Pulses: bilateral radial was 2+. Oxygen started at 2liters/min via nasal canula. right groin was prepped with chloroprep then draped in the usual sterile fashion. right radial was prepped with chloroprep then draped in the usual sterile fashion. Physician notified. Baseline sample Acquired. HR: 63 BPM. Patient's family unavailable. Equipment: 6F - Radial. Cardiac Cath Pack. ACIST Manifold Kit Model BT 2000. Heparinized Saline (2 units/mL), 1000 mL bag. Physician arrived. Physician scrubbed in. Immediate Pre-Procedure Time Out. Correct Patient: Yes; Correct Procedure: Yes; Correct Site: Yes; Correct Patient Position: Yes; Correct Supplies: Yes; Dried Flammable Prep: Yes; Blood Products Available: N/A. Lidocaine 1% infiltrated to the right radial. Arterial access obtained using ultasound guidance. A 5 czech TIG catheter in over the exchange J wire. Multiple views taken of left coronary artery. Catheter redirected to the RCA. Multiple views taken of right coronary artery. Catheter removed over the exchange J wire. A 5 czech Angled Pig catheter in over the exchange J wire. EDP Sample taken: LV 115/-3,16; HR: 71 BPM; SpO2: 95%. LV gram performed in DALE @ 10 mL/second for a total of 30 mL. EDP Sample taken: LV 109/-3,14; HR: 66 BPM; SpO2: 88%. Pullback taken: LV 109/-5,13; AO 106/62(81); Mean: 13mmHg, Peak to Peak: 3mmHg, SEP: 7sec/min; HR: 70 BPM; SpO2: 94%. Catheter removed over the exchange J wire. Physician scrubbed out. A TR Band was successful obtaining hemostatsis at the Right Radial artery insertion site. Post Procedure: Pulses reassessed and unchanged. PERRLA. Strong, equal hand production department supervisor bilaterally. No VTE prophylaxis required. Medication's Wasted: Lidocaine 1% = 18 mL. Medication's Wasted: Nitro = 49.8 mg. Medication's Wasted: Heparin = 1000 units. Medication's Wasted: Other = Fentanyl 50 mcg. Total IV fluids: 21 mL. Post-op diagnosis: non-obstructive CAD. Complications: none. Estimated blood loss: 5mL-10mL. Responsiveness - Normal response to verbal stimuli; alert and oriented, PERRLA. Airway - Unaffected, no intervention required; spontaneous ventilation. Circulation: W/N/L, pulses unchanged. Nausea/Vomiting: No. Procedure completed. Patient transferred by wheelchair to CPRU. Vital chart was stopped. Access Site Site: Right Radial artery Sheath Size: 6 Fr Hemostasis Method: TR Band Hemostasis Success: Successful Procedure Medications Start: 10:30 AM Stop: 10:30 AM Medication: Versed Amount: 1 mg Route: I.V. Start: 10:30 AM Stop: 10:30 AM Medication: Fentanyl Amount: 25 mcg Route: I.V. Start: 10:33 AM Stop: 10:33 AM Medication: Versed Amount: 1 mg Route: I.V. Start: 10:33 AM Stop: 10:33 AM Medication: Fentanyl Amount: 25 mcg Route: I.V. Start: 10:37 AM Stop: 10:37 AM Medication: Nitrogylcerin Amount: 200 mcg Route: I.A. Start: 10:39 AM Stop: 10:39 AM Medication: Heparin Amount: 5000 units Route: I.V. I, the attending physician, have reviewed and verified all procedure medications. Yes, all medications given per verbal order History/Risk Factors Hypertension: Yes Dyslipidemia: Yes Peripheral Arterial Disease (PAD): No Myocardial Infarction (OK): No Obesity: No Renal Disease: No Tobacco Use: Former Prior Interventions PCI: No CABG: No Valve Surgery: No Report Signatures Finalized by Darren Thomson MD on 12/04/2024 03:21 PM
[2024-11-22] MEDS: diphenhydrAMINE 50 mg Capsule PO (09:30)
[2024-11-22 09:38] LABS: Basophils % 0.4 %; Eosinophils # 0.2 10^3/uL (0.0-0.8); Eosinophils % 2.5 %; Hematocrit 41.4 % (37-53); Lymphocytes # 3.7 10^3/uL (0.8-4.8); Lymphocytes % 46.5 %; Mean Corpuscular HGB Conc 34.3 g/dL (30-55); Mean Corpuscular Hemoglobin 32.3 pg (27-33); Mean Corpuscular Volume 94.3 fl (82-101); Mean Platelet Volume 8.9 fL (7.4-10.4); Monocytes # 0.6 10^3/uL (0.2-0.9); Monocytes % 7.4 %; Neutrophils # 3.41 10^3/uL (1.8-7.7); Neutrophils % 42.9 %; Nucleated Red Blood Cells % 0 %; Platelet Count 346 10^3/cmm (157-399); Red Blood Count 4.39 10^6/uL (3.85-5.65); Red Cell Distribution Width 13.1 % (12.1-15.1); White Blood Count 7.95 10^3/uL (3.29-11.43)
[2024-11-22 10:19] LABS: Anion Gap 17.9 (5-19); Blood Urea Nitrogen 11 mg/dL (6-20); Calcium 9.2 mg/dL (8.5-10.5); Carbon Dioxide 23 mmol/L (22-29); Chloride 105 mmol/L (98-107); Glomerular Filtration Rate 145.7 mL/min (90-130); Glucose 103 mg/dL (65-115); Osmolality Calculated 294 mOsm/kg (285-295); Potassium 3.9 mmol/L (3.5-5.1); Sodium 142 mmol/L (136-145)
--- NOTE | 2024-11-22 10:22 | W.PM.OPSUD ---
Surgery/Procedure H&P Update DATE OF PROCEDURE: November 22, 2024 DATE H&P PERFORMED: 11/05/24 H&P UPDATE INFORMATION: I have reviewed H&P completed within last 30 days, I have examined patient prior to procedure and Changes to prior documentation as noted here CHANGES TO PREVIOUS DOCUMENTATION: Patient continues to have refractory angina despite of 2 antianginal medications. Plan for coronary angiogram with possible percutaneous coronary intervention PREOP DIAGNOSIS: Chest pain/abnormal stress test PRIMARY INDICATION FOR PROCEDURE: Chest pain/abnormal stress test PLANNED PROCEDURE: Operation Date: 11/22/24 10:00 Proposed Procedures p Cardiac Catheterization - [facility] w/wo LV & Coros(Left) - Darren Thomson M.D Possible percutaneous coronary intervention PATIENT REASSESSED PRIOR TO SEDATION, WITH NO CHANGE NOTED: Yes PHYSICAL EXAM: alert, oriented x 3, clear to auscultation bilaterally and regular rate & rhythm AIRWAY EVAL/ANESTHESIA PLAN: normal airway, ASA III, Local Anesthesia, Risks, benefits & alternatives of sedation and/or procedure discussed and Patient agrees to continue as planned ADDITIONAL INFORMATION: Moderate sedation
--- NOTE | 2024-11-22 10:53 | PM.PROC ---
Procedure Note: Date of procedure: 11/22/24 Pre-procedure diagnosis: Chest pain/abnormal stress test Post-procedure diagnosis: other (Non-obstructive coronary artery disease) Procedure: Patent coronary arteries. Aggressive risk factor modification. Outpatient cardiology follow up Performing Provider: Draren Thomson Complications: None Condition: stable Disposition: floor Coding Level of Care Code Acute Code for [facility] Fwd
--- NOTE | 2024-11-22 13:15 | PC.NURSE ---
Physician Notification/Pain Dr. Thomson contacted for patient reports of chronic back pain. Rates 5/10 and concerned about scheduled home medications. Patient asking if he can take his scheduled TID medications, which is 900mg gabapentin and Hydrocodone 10-325mg 2 tabs. Received telephone orders patient may take these home medications at this time.
--- NOTE | 2024-11-22 13:30 | PC.NURSE ---
TR band removal At 1200 1-3ml air released from right radial TR band every 5-15minutes until band off. TR band down at 1330, site asymptomatic. No signs of bleeding or hematoma noted. Radial pulse palpable. Dressed site with large bandaid.
== END 2024-11-22 14:32 | disposition home or self-care (01) ==
PROVIDERS: PCP Family Medicine; Visit Provider Internal Medicine
DX: R94.39 Abnormal result of other cardiovascular function study (principal); R07.9 Chest pain, unspecified; I10 Essential (primary) hypertension; E78.5 Hyperlipidemia, unspecified; E78.00 Pure hypercholesterolemia, unspecified; Z82.49 Family history of ischemic heart disease and other diseases of the circulatory system; Z79.82 Long term (current) use of aspirin; F41.9 Anxiety disorder, unspecified; F17.200 Nicotine dependence, unspecified, uncomplicated
CPT/HCPCS: 36415; 80048; 85025; 93458; 99152; 99153; C1769; C1887; C1894; J1644; J2250; J3010; J3490; J7030; J9999; Q0163; Q9967